=== PATIENT | male | born 1995 | race Caucasian/White ===

== ENCOUNTER 2018-09-25 00:48 | Emergency (ER) | payer OTHER ==
[2018-09-25] MEDS ORDERED: NS 1,000 ML IV ONE (01:03)
[2018-09-25] MEDS ORDERED: HALOPERIDOL LACT 5 MG/ML INJ IVP ONE (01:03)
--- NOTE | 2018-09-25 01:05 | EDPHY ---
H & P Stated Complaint: abd pain, n/v/d - Medical/Surgical History Hx Asthma: No Hx Chronic Respiratory Disease: No Hx Diabetes: No Hx Cardiac Disease: No Hx Renal Disease: No Hx Cirrhosis: No Hx Alcoholism: No Hx HIV/AIDS: No Hx Splenectomy or Spleen Trauma: No Other PMH: seasonal allergies, no surg. - Social History Smoking Status: Never smoked Time Seen by Provider: 09/25/18 00:59 HPI/ROS: CHIEF COMPLAINT: Nausea vomiting diarrhea since this evening HISTORY OF PRESENT ILLNESS: 22-year-old male generally healthy in the ER with mother via private vehicle complaining of nausea vomiting diarrhea abdominal cramping since this evening. No testicular pain. No fever or chills. No trauma. No melena or hematochezia. No hematemesis. No fever or chills. No international travel. No untreated water sources. No recent antibiotic use. No URI symptoms. No known sick contacts PRIMARY CARE PROVIDER: REVIEW OF SYSTEMS: 10 systems reviewed and negative with the exception of the elements mentioned in the history of present illness PAST MEDICAL & SURGICAL HISTORY: Pyloric stenosis as . SOCIAL HISTORY: positive for marijuana use, last used 1 week ago PHYSICAL EXAM (Prior to examination, patient consented to physical exam, hands were washed and my usual and customary physical exam procedures followed) 1) GENERAL: Well-developed, well-nourished, alert and oriented. Appears uncomfortable, appears anxious 2) HEAD: Normocephalic, atraumatic 3) HEENT: Pupils equal, round, reactive to light bilaterally. Sclera anicteric. Nasopharynx, oropharynx, clear, no lesions. Dry mucous membranes. 4) NECK: Full range of motion, no meningeal signs. 5) LUNGS: Clear auscultation bilaterally, no wheezes, no rhonchi, no retractions. 6) HEART: Regular rate and rhythm, no murmur, no heave, no gallop. 7) ABDOMEN: No guarding, mild tenderness to palpation epigastrium, negative McBurney's, negative Huffman's, negative Rovsing's, negative peritoneal sign, 8) MUSCULOSKELETAL: Moving all extremities, no focal areas of tenderness, no obvious trauma. No peripheral edema or discoloration. 9) BACK: No CVA tenderness, no midline vertebral tenderness, no fluctuance, no step-off, no obvious trauma, no visual or palpable abnormality. 10) SKIN: No rash, no petechiae. 11) Psychiatric: Patient is oriented X 3, there is no agitation. DIFFERENTIAL DIAGNOSIS: [ My differential diagnosis includes, but is not limited to, acute appendicitis, acute cholecystitis, bowel obstruction, acute pancreatitis, testicular torsion, gastritis and urinary tract infection. The patient understands that this diagnosis is provisional and can never be 100% accurate. This is a partial list of diagnoses considered. These considerations are based on history, physical exam, past history and reassessment.] (Mary Kay Mcgrath) Constitutional: Initial Vital Signs Heart Rate 108 H 09/25/18 00:52 Blood Pressure 140/78 H 09/25/18 00:52 O2 Sat (%) 20 L 09/25/18 00:52 O2 Delivery Mode Room Air Allergies/Adverse Reactions: No Known Allergies Allergy (Unverified 09/25/18 00:51) Home Medications: Medication Instructions Recorded Oseltamivir Phosphate [Tamiflu] 75 mg PO BID #1 btl 11/06/13 Medical Decision Making ED Course/Re-evaluation: 1:05 a.m.: Will administer IV fluids, IV Haldol, re-evaluate. Care of patient under supervision of secondary supervising physician Dr Mayorga with whom I discussed case. 1:40 a.m.: Re-evaluation after IV Haldol. Resting comfortably, states that he is feeling totally better. I re-examined his abdomen which is soft, no guarding no rebound, no McBurney's point pain, no epigastric pain, no distension. Leukocytosis noted in his blood work which I think less than likely represents acute surgical abdominal pathology such as acute appendicitis more than likely secondary to the patient's initial presenting retching, pain. At this time I do not think that CT imaging is indicated. I had a lengthy discussion with the mother and patient about this and did offer this and he is in agreement he does not feel is indicated. I have provided my usual and customary abdominal precautions instructions and the patient and mother feel comfortable being discharged home. (Mary Kay Mcgrath) - Data Points Laboratory Results: Laboratory Results 09/25/18 01:07 09/25/18 01:07 09/25/18 09/25/18 01:07 01:07 WBC 21.23 10^3/uL H 10^3/uL (3.80-9.50) RBC 5.25 10^6/uL 10^6/uL (4.40-6.38) Hgb 16.5 g/dL g/dL (13.7-17.5) Hct 46.9 % % (40.0-51.0) MCV 89.3 fL fL (81.5-99.8) MCH 31.4 pg pg (27.9-34.1) MCHC 35.2 g/dL g/dL (32.4-36.7) RDW 11.9 % % (11.5-15.2) Plt Count 339 10^3/uL 10^3/uL (150-400) MPV 8.9 fL fL (8.7-11.7) Neut % (Auto) 86.5 % H % (39.3-74.2) Lymph % (Auto) 7.1 % L % (15.0-45.0) [place] % (Auto) 5.7 % % (4.5-13.0) Eos % (Auto) 0.2 % L % (0.6-7.6) Baso % (Auto) 0.2 % L % (0.3-1.7) Nucleat RBC Rel Count 0.0 % % (0.0-0.2) Absolute Neuts (auto) 18.34 10^3/uL H 10^3/uL (1.70-6.50) Absolute Lymphs (auto) 1.50 10^3/uL 10^3/uL (1.00-3.00) Absolute Monos (auto) 1.22 10^3/uL H 10^3/uL (0.30-0.80) Absolute Eos (auto) 0.05 10^3/uL 10^3/uL (0.03-0.40) Absolute Basos (auto) 0.05 10^3/uL 10^3/uL (0.02-0.10) Absolute Nucleated RBC 0.00 10^3/uL 10^3/uL (0-0.01) Immature Gran % 0.3 % % (0.0-1.1) Immature Gran # 0.07 10^3/uL 10^3/uL (0.00-0.10) Sodium 141 mEq/L mEq/L (135-145) Potassium 3.3 mEq/L mEq/L (3.3-5.0) Chloride 106 mEq/L mEq/L (97-110) Carbon Dioxide 17 mEq/l L mEq/l (22-31) Anion Gap 18 mEq/L H mEq/L (6-14) BUN 17 mg/dL mg/dL (7-23) Creatinine 0.9 mg/dL mg/dL (0.7-1.3) Estimated GFR > 60 Glucose 136 mg/dL H mg/dL (70-100) Calcium 10.3 mg/dL mg/dL (8.5-10.4) Total Bilirubin 2.1 mg/dL H mg/dL (0.1-1.4) Conjugated Bilirubin 0.3 mg/dL mg/dL (0.0-0.5) Unconjugated Bilirubin 1.8 mg/dL H mg/dL (0.0-1.1) AST 39 IU/L IU/L (17-59) ALT 25 IU/L IU/L (21-72) Alkaline Phosphatase 105 IU/L IU/L (38-126) Total Protein 8.8 g/dL H g/dL (6.3-8.2) Albumin 5.3 g/dL H g/dL (3.5-5.0) Lipase 61 IU/L IU/L (23-300) Medications Given: Discontinued Medications Albuterol Sulfate (Proventil Inh Prepack) 1 mdi TAKEHOME EDNOW ONE Stop: 09/25/18 02:39 Last Admin: 09/25/18 02:50 Dose: 1 mdi Haloperidol Lactate (Haldol Injection) 2.5 mg IVP EDNOW ONE Stop: 09/25/18 01:04 Last Admin: 09/25/18 01:18 Dose: 2.5 mg Sodium Chloride (Ns) 1,000 mls @ 0 mls/hr IV EDNOW ONE; Wide Open PRN Reason: Protocol Stop: 09/25/18 01:04 Last Admin: 09/25/18 01:18 Dose: 1,000 mls Ondansetron HCl (Zofran Odt 4 Mg Prepack#2) 1 btl TAKEHOME EDNOW ONE Stop: 09/25/18 01:51 Last Admin: 09/25/18 02:02 Dose: 1 btl Departure - Departure Disposition: Home, Routine, Self-Care Clinical Impression: Nausea vomiting and diarrhea Condition: Good Instructions: Albuterol (By breathing), Ondansetron (By mouth), Acute Nausea and Vomiting (ED) Additional Instructions: Seek immediate medical attention if you develop new or worsening symptoms, if you develop fevers, chills, inability to tolerate oral intake or any other symptoms that concerns you. Referrals: Anastasia Lopez MD [Primary Care Provider] - 09/27/18
[2018-09-25 01:15] LABS: PLATELET COUNT 339 10^3/uL (150-400)
[2018-09-25] MEDS ORDERED: ONDANSETRON 4MG PREPACK#2 BTL TAKEHOME ONE (01:50)
[2018-09-25] MEDS ORDERED: ALBUTEROL INH PREPACK MDI TAKEHOME ONE (02:38)
[2018-09-25 02:52] VITALS: BP 100/59
== END 2018-09-25 02:55 | disposition home or self-care (01) ==
DX: R11.2 Nausea with vomiting, unspecified (principal); R19.7 Diarrhea, unspecified; E86.9 Volume depletion, unspecified
CPT/HCPCS: 96374; J1630